=== PATIENT | male | born 1995 | race Two or more races ===

== ENCOUNTER 2020-03-13 19:48 | Emergency (ER) | payer MEDICAID, SELFPAY ==
[2020-03-13 20:22] VITALS: BP 126/84; PULSE 60; RESP 12; TEMP 36.8; O2SAT 99; BMI 20.7
--- NOTE | 2020-03-13 21:05 | HMH.EDUTC ---
[facility] [place] Clinical Impression: Viral syndrome Disposition: Home, Self-Care Condition on Discharge: Good Instructions: Sore Throat, Cough, DI for Viral Syndrome, DI for Vomiting -- Adult Additional Instructions: *Monitor Temp, Over the counter Motrin or Tylenol as directed/as needed Tylenol every 4 hours and Motrin every 6 hours (as long as your family doctor has told you that you can take it) for fever or pain. and straight to ER if unable to lower temp less than 101.0 after medication given *Warm salt water gargles may help to soothe the throat *Throat Lozenges *Warm fluids like tea with honey may help to soothe the throat *Sleep elevated *Humidifier/Vaporizer *Flonase 2 sprays in each nostril daily but be aware that it may take 2-3 days before you notice improvement Your throat swab was sent for culture. Those results are typically sent to your primary care. Be sure to follow up in 2-3 days with your family doctor/primary care physician if no improvement so they can review those result and treat if necessary. If you don?t have a primary care doctor, I recommend you get one but in the mean time, you will have to return to a walk in clinic Follow up IMMEDIATELY for new or worsening symptoms or no Noticeable improvement over the next 48-72 hours. 911 for difficulty breathing or swallowing Referrals: PCP,No [Primary Care Provider] - As needed Time of Disposition: 21:10 Medical Decision Making - Alec Inquiry Pt receiving controlled substance: No Alec was queried for this patient: No Vital Signs: 03/13/20 20:22 Temperature 98.2 F Temperature Source Oral Pulse Rate [Right Brachial] 60 Respiratory Rate 12 Blood Pressure [Right Arm] 126/84 Blood Pressure Mean [Right Arm] 98 Blood Pressure Source [Right Arm] Automatic Cuff Blood Pressure Position [Right Arm] Sitting 02 Sat by Pulse Oximetry 99 Oxygen Delivery Method Room Air - Lab Data Lab results reviewed: Yes: I reviewed the patient's lab results. Medical Decision Narrative: No vomiting in the last 3-4 days [facility] [place] H[place] - General Stated complaint: Sore throat, vomiting Time Seen by Provider: 03/13/20 21:06 Mode of Arrival: Ambulatory Source of Information: Patient Limitations: No Limitations Description of Symptoms (Recalled from Triage Doc. by RN): PATIENT C/O SORE THROAT, JAW FEELING SWOLLEN, COUGH, AND VOMITING HEENT Symptoms (Recalled from RN notes): No Resp Symptoms (Recalled from RN notes): No Skin Symptoms (Recalled from RN notes): No MS Symptoms (Recalled from RN notes): No Functional Status (Recalled from RN notes): WNL - History of Present Illness Provider Complaint: Patient states that about 3-4 days ago he had sore throat and felt like his throat was swollen had drainage and coughed until he vomited States that his mother in law told him his throat looked swollen States that today he was still feeling like his throat was raw and swollen and wanted to get checked to see if he may have strep throat - Related Data Allergies Allergy/AdvReac Type Severity Reaction Status Date / Time No Known Allergies Allergy Verified 03/13/20 20:26 - Worker's Comp Is this a Worker's Comp case?: No [facility] History - Hepatitis A Screen Drug use history?: No High risk sexual behaviors?: No History of sexually transmitted infection?: No Currently employed?: No Childcare worker?: No Do you have indoor plumbing?: Yes Do you have electricity?: Yes Attestation statement:: This patient has been screened for Hepatitis A risk factors. I have reviewed the patient's past medical history: Yes - Social History Alcohol Intake: never Occupational Status: other ROS Obtained: Yes All systems reviewed & no additional complaints, Yes Systems reviewed as appropriate & no additional complaints - Constitutional Constitutional: Reports system reviewed and no additional complaints, except as docu - ENT Ears, Nose, Mouth, and Throat: Reports system emely
[2020-03-13 21:14] VITALS: BP 126/84; PULSE 60; RESP 12; TEMP 36.8; O2SAT 99
[2020-03-13 21:36] LABS: UTC Strep Screen (Rapid) Negative (Negative)
== END 2020-03-13 21:15 | disposition home or self-care (01) ==
PROVIDERS: Emergency Provider Nurse Practitioner
DX: B34.9 Viral infection, unspecified (principal)
CPT/HCPCS: 87880; 99201

== ENCOUNTER 2021-08-14 19:16 | Emergency (ER) | payer SELFPAY ==
[2021-08-14 20:23] VITALS: BP 131/77; PULSE 81; RESP 19; TEMP 36.8; O2SAT 100; BMI 19.3
--- NOTE | 2021-08-14 20:32 | HMH.EDUTC ---
[facility] – [place] Disposition Clinical Impression: URI (upper respiratory infection) Qualifiers: URI type: unspecified URI Qualified Code(s): J06.9 - Acute upper respiratory infection, unspecified Disposition: Home, Self-Care Condition on Discharge: Good Instructions: Sore Throat, DI for Cough -- Adult Additional Instructions: *Monitor Temp, Over the counter Motrin or Tylenol as directed/as needed Tylenol every 4 hours and Motrin every 6 hours (as long as your family doctor has told you that you can take it) for fever or pain. and straight to ER if unable to lower temp less than 101.0 after medication given *Warm salt water gargles may help to soothe the throat *Throat Lozenges *Warm fluids like tea with honey may help to soothe the throat *Sleep elevated *Humidifier/Vaporizer Take medication as prescribed Your throat swab was sent for culture. Those results are typically sent to your primary care. Be sure to follow up in 2-3 days with your family doctor/primary care physician if no improvement so they can review those result and treat if necessary. If you don?t have a primary care doctor, I recommend you get one but in the mean time, you will have to return to a walk in clinic Follow up IMMEDIATELY for new or worsening symptoms or no Noticeable improvement over the next 48-72 hours. 911 for difficulty breathing or swallowing Prescriptions: Brompheniramine/Pseudoephed/Dm [Bromfed Dm Cough Syrup] 5 - 10 ml PO Q4-6H PRN #150 ml PRN Reason: Cough Transmission Status: Pending to [email or web address] # Azithromycin [Z-Milton 250mg Tab] 250 mg PO DIRECTED #6 tab Transmission Status: Pending to [email or web address] # Referrals: Provider,Referral, [Primary Care Provider] - As needed Forms: Work/School Release Medical Decision Making - Alec Inquiry Pt receiving controlled substance: No Alec was queried for this patient: No Vital Signs: 08/14/21 20:23 08/14/21 21:03 Temperature 98.2 F 98.2 F Temperature Source Oral Pulse Rate 81 Pulse Rate [Left] 81 Respiratory Rate 19 19 Blood Pressure 131/77 Blood Pressure [Right Arm] 131/77 Blood Pressure Mean [Right Arm] 95 02 Sat by Pulse Oximetry 100 - Lab Data Lab results reviewed: Yes: I reviewed the patient's lab results. Lab Results 08/14/21 20:19: Influenza Type A Ag Negative, Influenza Type B Ag Negative 08/14/21 20:20: Group A Strep Rapid Negative Orders (Tests/Meds): ORDERS Category Date Time Status Strep Screen Confirmation Stat Micro 08/14/21 20:20 Received [facility] [place] HPI - General Stated complaint: cough congestion,runny nose congestion Time Seen by Provider: 08/14/21 20:32 Mode of Arrival: Ambulatory Source of Information: Patient Limitations: No Limitations Description of Symptoms (Recalled from Triage Doc. by RN): pt c/o chest congestion, cough and nasal drainage x3 days. HEENT Symptoms (Recalled from RN notes): Yes Resp Symptoms (Recalled from RN notes): Yes Skin Symptoms (Recalled from RN notes): No MS Symptoms (Recalled from RN notes): No Functional Status (Recalled from RN notes): wnl - History of Present Illness Provider Complaint: Patient states that he has been having pressure behind his eyes, drianage in the back of his throat, cough and chest congestion States that he is not coughing any thing up but feels like he may have a sinus infection, strep or bronchitis - Related Data Previous Rx's Medication Instructions Recorded Azithromycin [Z-Milton 250mg Tab] 250 mg PO DIRECTED #6 tab 08/14/21 Brompheniramine/Pseudoephed/Dm 5 - 10 ml PO Q4-6H PRN #150 ml 08/14/21 [Bromfed Dm Cough Syrup] Allergies Allergy/AdvReac Type Severity Reaction Status Date / Time No Known Allergies Allergy Verified 03/13/20 20:26 - Worker's Comp Is this a Worker's Comp case?: No [facility] History - Hepatitis A Screen Drug use history?: No High risk sexual behaviors?: No History of sexually transmitted infect
[2021-08-14 20:41] LABS: UTC Influenza A Antigen Negative (Negative); UTC Influenza B Antigen Negative (Negative)
[2021-08-14 20:50] LABS: Strep Scrn Group A (Rapid) Negative (Negative)
[2021-08-14 21:03] VITALS: BP 131/77; PULSE 81; RESP 19; TEMP 36.8
== END 2021-08-14 21:25 | disposition home or self-care (01) ==
PROVIDERS: Emergency Provider Nurse Practitioner
DX: J06.9 Acute upper respiratory infection, unspecified (principal)
CPT/HCPCS: 87430; 87804; 99212; G0463

== ENCOUNTER 2021-11-28 10:08 | Emergency (ER) | payer SELFPAY ==
[2021-11-28 10:15] VITALS: BP 100/70; PULSE 57; RESP 19; TEMP 36.8; O2SAT 98; BMI 19.6
--- NOTE | 2021-11-28 11:00 | HMH.EDUTC ---
[facility] – [place] Disposition Clinical Impression: URI (upper respiratory infection) Qualifiers: URI type: unspecified URI Qualified Code(s): J06.9 - Acute upper respiratory infection, unspecified Disposition: Home, Self-Care Condition on Discharge: Good Instructions: Acute Bronchitis, DI for Cough -- Adult Additional Instructions: ? Start antibiotic today. Be sure to complete entire prescription even if feeling better ? Monitor temp. Tylenol every 4 hours as needed and / or ibuprofen every 6 hours as needed ( As long as your primary care physician has told you that it ok to take both. For fever/aches/pains ER if no less than 101 despite Tylenol or Motrin ? Humidifier/vaporizer or hot steamy shower *Start steroid today. Helps with inflammation therefore, cough and wheezing. Follow directions on the package. Reviewed side effects. Patient reports taking them before. Follow up IMMEDIATELY for new or worsening of symptoms OR no noticeable improvement over the next 48-72 hours. 911 immediately for any life threatening symptoms such as chest pain or difficulty breathing Prescriptions: Ibuprofen [Ibuprofen 400mg Tablet] 400 mg PO Q4HP PRN #20 tab PRN Reason: Moderate Pain Transmission Status: Received by [facility] # methylPREDNISolone [Medrol 4mg tab] 4 mg PO DIRECTED #21 tab Transmission Status: Received by [facility] # Azithromycin [Z-Milton 250mg Tab] 250 mg PO DIRECTED #6 tab Transmission Status: Received by [facility] # Referrals: Marlo Waite MD [Primary Care Provider] - As needed Time of Disposition: 11:15 Medical Decision Making - Alec Inquiry Pt receiving controlled substance: No Alec was queried for this patient: No Vital Signs: 11/28/21 10:15 11/28/21 11:10 Temperature 98.3 F 98.3 F Temperature Source Oral Pulse Rate 57 L Pulse Rate [Right Brachial] 57 L Respiratory Rate 19 19 Blood Pressure 100/70 L Blood Pressure [Right Arm] 100/70 L Blood Pressure Mean [Right Arm] 80 Blood Pressure Source [Right Arm] Automatic Cuff Blood Pressure Position [Right Arm] Sitting 02 Sat by Pulse Oximetry 98 Oxygen Delivery Method Room Air - Lab Data Lab Results 11/28/21 11:00: Chlamy pneumoniae PCR Not detected, Adenovirus (PCR) Not detected, B. pertussis DNA (PCR) Not detected, Coronavirus OC43 (PCR) Not detected, Coronavirus HKU1 (PCR) Not detected, Coronavirus 229E (PCR) Not detected, SARS-CoV-2 (PCR) Detected A, Coronavirus NL63 (PCR) Not detected, Human Metapneumovir PCR Not detected, Influenza A (H1) PCR Not detected, Influ A (H1N1/09) PCR Not detected, Influenza A (H3) PCR Not detected, Influenza Type A (PCR) Not detected, Influenza Type B (PCR) Not detected, M. pneumoniae (PCR) Not detected, Parainfluenza 1 (PCR) Not detected, Parainfluenza 2 (PCR) Not detected, Parainfluenza 3 (PCR) Not detected, Parainfluenza 4 (PCR) Not detected, RSV (PCR) Not detected, Entero/Rhino (PCR) Not detected [facility] – [place] HPI - General Stated complaint: chest congestion, cough, chills Time Seen by Provider: 11/28/21 11:01 Mode of Arrival: Ambulatory Source of Information: Patient Limitations: No Limitations Description of Symptoms (Recalled from Triage Doc. 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
[2021-11-28 11:01] LABS: Adenovirus,PCR Not Detected (NotDetected); Bordetella Pertussis Not Detected (NotDetected); Chlamydophila Pneumoniae, PCR Not Detected (NotDetected); Coronavirus 229E Not Detected (NotDetected); Coronavirus NL63 Not Detected (NotDetected); Coronavirus OC43 Not Detected (NotDetected); Coronovirus HKU1,PCR Not Detected (NotDetected); Human Metapneumovirus Not Detected (NotDetected); Influenza A, PCR Not Detected (NotDetected); Influenza AH1, 2009 Not Detected (NotDetected); Influenza AH1, PCR Not Detected (NotDetected); Influenza AH3,PCR Not Detected (NotDetected); Influenza B, PCR Not Detected (NotDetected); Mycoplasma Pneumoniae, PCR Not Detected (NotDetected); Parainfluenza 1, PCR Not Detected (NotDetected); Parainfluenza 2, PCR Not Detected (NotDetected); Parainfluenza 3, PCR Not Detected (NotDetected); Parainfluenza 4, PCR Not Detected (NotDetected); Respiratory Syncytial Virus Not Detected (NotDetected); Rhinovirus/Enterovirus Not Detected (NotDetected)
[2021-11-28 11:10] VITALS: BP 100/70; PULSE 57; RESP 19; TEMP 36.8; O2SAT 98
[2021-11-28 12:54] LABS: Coronavirus 19, PCR Detected (NotDetected)
== END 2021-11-28 11:17 | disposition home or self-care (01) ==
PROVIDERS: Emergency Provider Nurse Practitioner; PCP Emergency Medicine
DX: U07.1 COVID-19
CPT/HCPCS: 87581; 87632; 87798; 99212; C9803; G0463; U0003; U0005

== ENCOUNTER 2022-04-16 13:47 | Emergency (ER) | payer SELFPAY ==
--- NOTE | 2022-04-16 15:11 | EXP.UTC ---
Discharge Plan Disposition Patient Disposition: Home, Self-Care Condition: Good Prescriptions Prescriptions: New doxycycline hyclate [doxycycline hyclate] 100 mg capsule 100 mg PO Q12 10 Days Qty: 20 0RF No Action azithromycin 250 MG tablet 250 mg PO DIRECTED Qty: 6 0RF Rx Instructions: Take two (2) tablets on day #1, then one (1) tablet day #2 thru #5 methylprednisolone 4 MG tablet 4 mg PO DIRECTED Qty: 21 0RF Rx Instructions: Take as directed on package instructions ibuprofen 400 MG tablet 400 mg PO Q4HP PRN (Reason: Moderate Pain) Qty: 20 0RF Referrals Follow up/Referrals: Provider,Referral, MD [Primary Care Provider] - See instructions Activity Restrictions/Add. Instructions Additional Instructions/Restrictions: Drink plenty of fluids. Take the medications as directed. Follow up with your regular doctor. GO TO THE ER FOR ANY WORSENING SYMPTOMS Follow up with your primary care physician in 3 to 4 days for the test results. You will already be on the treatment if it is positive. If its negative, you should finish the doxycycline anyway. Clinical Impressions Clinical Impression: Exposure to chlamydia Instructions Patient Instructions: DI for Chlamydia, Chlamydia, Doxycycline Discharge ED Provider: Zion Osorio [facility] General Stated complaint: Chlamydia test Time Seen by Provider: 04/16/22 15:11 History of Present Illness Provider Complaint: His tested positive for chlamydia at her first ob appt for being . He denies any symptoms. Related Data Previous Rx's Medication Instructions Recorded azithromycin 250 mg tablet 250 mg PO DIRECTED #6 tabs 11/28/21 ibuprofen 400 mg tablet 400 mg PO Q4HP PRN Moderate Pain 11/28/21 #20 tabs methylprednisolone 4 mg tablet 4 mg PO DIRECTED #21 tabs 11/28/21 doxycycline hyclate 100 mg capsule 100 mg PO Q12 10 days #20 caps 04/16/22 Allergies Allergy/AdvReac Type Severity Reaction Status Date / Time No Known Allergies Allergy Verified 03/13/20 20:26 [facility] Social History Smoking Status: Never smoker alcohol intake: never current occupational status: other Travel in the last 8 weeks: None ROS Obtained: Yes All systems reviewed & no additional complaints except as documented Constitutional Constitutional: Denies chills and Denies fever(s) Eyes Eyes: Denies eye discharge ENT Ears, Nose, Mouth, and Throat: Denies dizziness, Denies otalgia and Denies sore throat Cardiovascular Cardiovascular: Denies chest pain Respiratory Respiratory: Denies shortness of breath, Denies chest congestion, Denies cough, Denies stridor and Denies wheezing Gastrointestinal Gastrointestingal: Denies nausea or vomiting Genitourinary Male Genitourinary: Reports as per HPI Musculoskeletal Musculoskeletal: Reports system reviewed and no additional complaints, except as documented and Denies arthralgias Integumentary/Breasts Skin/Breast: Denies rash Neurologic Neurologic: Denies dizziness and Denies paresthesias Allergic/Immunologic Allergic/Immunologic: Denies wheezing Physical Exam General General appearance: alert and in no apparent distress Head Head exam: atraumatic, normocephalic and normal inspection Eye Eye exam: Present normal appearance, PERRL and EOMI ENT ENT exam: Present normal exam, normal oropharynx, mucous membranes moist, TM's normal bilaterally and normal external ear exam Neck Neck exam: Present normal inspection, full ROM and trachea midline; Absent meningismus or lymphadenopathy Chest Chest inspection: Present normal inspection and symmetric chest wall rise; Absent tenderness Respiratory Respiratory exam: Present normal lung sounds bilaterally; Absent respiratory distress Cardiovascular Cardiovascular exam: Present regular rate and normal rhythm; Absent JVD Abdominal Exam Abdominal exam: Present soft and normal vahid
[2022-04-16 15:15] VITALS: BP 120/75; PULSE 60; RESP 16; TEMP 36.7; O2SAT 99; BMI 19.9
[2022-04-16 15:53] VITALS: BP 120/75; PULSE 60; RESP 16; TEMP 36.7
[2022-04-18 21:08] LABS: Neisseria gonorrhoeae, NAA Negative (Negative)
== END 2022-04-16 15:53 | disposition home or self-care (01) ==
PROVIDERS: Emergency Provider Nurse Practitioner Family
DX: A74.9 Chlamydial infection, unspecified (principal); Z79.1 Long term (current) use of non-steroidal anti-inflammatories (NSAID); Z79.52 Long term (current) use of systemic steroids
CPT/HCPCS: 87491; 87591; 99213; G0463